=== PATIENT | female | born 1965 | race Hispanic/Latino ===

== ENCOUNTER → 2024-02-28 | Outpatient (CLI) | payer BC | END | disposition home or self-care (01) | LOC: SHCH 11:14 | PROVIDERS: ATTEND Internal Medicine Cardiovascular Disease | DX: I10 Essential (primary) hypertension (principal) | CPT/HCPCS: 93306 ==

== ENCOUNTER → 2025-06-11 | Outpatient (CLI) | payer OTHER ==
--- NOTE | 2025-06-11 22:46 | HMCIMG ---
EXAM: XR Lumbar Spine, 2-3 Views total. CLINICAL HISTORY: Back pain COMPARISON: None provided. FINDINGS: BONES: Mild scoliotic deformity of lumbar spine with convexity towards right is seen. No acute fracture or aggressive appearing osseous lesion. Posterior vertebral body alignment is within normal limits in the lumbar spine. No subluxation, pars defects, or loss of vertebral body height seen. Transverse processes, spinous processes, and pedicles are unremarkable in appearance on the AP film. DISCS/DEGENERATIVE CHANGES: Moderate to severe degenerative endplate changes are present along the lumbar spine. There is loss of disc space height evident at T11-T12, L2-L3, L4-L5 /T/ L5-S1 with endplate sclerosis. Multilevel anterior marginal osteophytosis is seen. SOFT TISSUES: No prevertebral soft tissue swelling evident in the lumbar spine. IMPRESSION: 1. Moderate to severe degenerative lumbar spondylosis with multilevel disc space narrowing at T11-12, L2-3, L4-5, and L5-S1, endplate sclerosis, and multilevel anterior marginal osteophytes. 2. Mild lumbar dextroscoliosis. 3. No significant or acute pathologic findings otherwise. /[place]
== END | disposition home or self-care (01) ==
LOC: RAH 15:24
PROVIDERS: ATTEND Internal Medicine
DX: M47.816 Spondylosis without myelopathy or radiculopathy, lumbar region (principal); M48.07 Spinal stenosis, lumbosacral region; M41.86 Other forms of scoliosis, lumbar region; M25.78 Osteophyte, vertebrae; M48.04 Spinal stenosis, thoracic region; M51.370 Other intervertebral disc degeneration, lumbosacral region with discogenic back pain only
CPT/HCPCS: 72100